=== PATIENT | male | born 1990 | race African-American/Black ===

== ENCOUNTER 2019-10-16 14:08 | Emergency (ER) | payer OTHER ==
[2019-10-16] MEDS ORDERED: Ketorolac 30 MG/ML SDV IM ONE (14:52)
== END 2019-10-16 15:39 | disposition home or self-care (01) ==
LOC: DL.ED 14:08
DX: H81.10 Benign paroxysmal vertigo, unspecified ear (principal); M43.6 Torticollis
CPT/HCPCS: 96372; 99283; J1885